=== PATIENT | female | born 1975 ===

== ENCOUNTER → 2017-01-04 | Outpatient (CLI) | payer SELFPAY ==
--- NOTE | 2017-01-04 15:56 | RAD ---
Indication chronic foot pain. No history of injury. AP oblique and lateral views of the right foot were obtained. No bony abnormality is seen
== END | disposition home or self-care (01) ==
LOC: DXRADRC 15:33
PROVIDERS: ATTEND Physician Assistant Medical
DX: M79.671 Pain in right foot (principal)
CPT/HCPCS: 73630